=== PATIENT | female | born 1960 | race Caucasian/White ===

== ENCOUNTER → 2017-08-21 | Outpatient (CLI) | payer BC, SELFPAY | PROVIDERS: Family Provider Nurse Practitioner Family; Visit Provider Nurse Practitioner Family | DX: E01.0 Iodine-deficiency related diffuse (endemic) goiter (principal) | CPT/HCPCS: 36415; 76536; 84439; 84443; 84481; 86376 ==

== ENCOUNTER → 2017-11-10 15:14 | Outpatient (CLI) | payer BC, SELFPAY ==
--- NOTE | 2017-11-10 15:17 | CT_ITS ---
CT sinus wo con Ordering Physician: Sanket Bolanos MD Patient Age: 57 years: Female HISTORY: Chronic maxillary sinusitis TECHNIQUE: Helical CT scanning performed through the facial bones and sinuses with sagittal and coronal and axial reconstructions on CT workstation.. As requested by Dr. Bolanos the sinuses as well as majority of the head and skull were included, for the potential utilization of stereotactic localization. COMPARISON :None FINDINGS The maxillary sinuses are well-developed and clear with no mucosal thickening. The ostiomeatal complex and outflow pathways appear patent bilaterally. The ethmoid air cells appear normal. The sphenoid sinuses and frontal sinuses clear as well. Orbits unremarkable. There is slight sigmoid deviation of the nasal septum the mid septum slightly deviates to the right and the more inferior septum to the left on coronal views. There is moderate to generous engorgement of the nasal turbinates bilaterally.. . The orbital rims floor the orbit medial wall orbit intact. The mastoid air cells, middle air and IACs unremarkable. External canal is unremarkable. Imaged portions skull, intact.. Soft tissues the neck only minimal prominence of tonsils bilaterally. Scattered small and moderate nodes throughout the neck.. No additional features of concern. Right and left TMJ intact. IMPRESSION: Paranasal sinuses are clear and unremarkable. Specifically Maxillary sinuses well-developed and clear. No sinusitis evident. Modest Deviation nasal septum. As in text Engorgement of turbinates.
== END ==
PROVIDERS: Family Provider Nurse Practitioner Family; PCP Nurse Practitioner Family; Visit Provider Otolaryngology
DX: J32.0 Chronic maxillary sinusitis (principal)
CPT/HCPCS: 70486

== ENCOUNTER → 2018-04-30 08:28 | Outpatient (CLI) | payer BC, SELFPAY ==
--- NOTE | 2018-04-30 08:30 | MM_ITS ---
MM Dig screening mamm BI w/CAD CAD Screening COMPARISON: Digital mammograms with CAD 06/27/2016 and 01/30/2015 INDICATION: There is a history of breast cancer in patient's mother diagnosed before menopause TECHNIQUE: Standard CC and MLO images were obtained. R2 CAD reviewed. FINDINGS: Moderate diffuse fibroglandular densities are seen in the central portions of both breast and the findings are bilateral and symmetrical. There is no new or suspicious lesion in either breast and there are no suspicious microcalcifications. IMPRESSION: Moderate breast density with no suspicious lesion seen BI-RADS Category: 1 Negative RECOMMENDED FOLLOW-UP: 1YR - 1 YEAR FOLLOW-UP (A letter has been sent to the patient regarding results of the study.)
== END ==
PROVIDERS: Family Provider Nurse Practitioner Family; PCP Nurse Practitioner Family; Visit Provider Nurse Practitioner Obstetrics & Gynecology
DX: Z12.31 Encounter for screening mammogram for malignant neoplasm of breast (principal)
CPT/HCPCS: 77067

== ENCOUNTER → 2018-06-29 07:05 | Outpatient (CLI) | payer BC, SELFPAY ==
[2018-06-29 09:03] LABS: Basophils % 0.6 % (0.1-2.0); Eosinophils # 0.1 K/mm3 (0.0-0.4); Eosinophils % 1.6 % (0.1-12.0); Hematocrit 42.7 % (37.0-47.0); Hemoglobin 13.6 g/dL (12.2-16.2); Lymphocytes # 1.5 K/mm3 (0.7-4.5); Lymphocytes % 27.6 K/mm3 (10-50); Mean Corpuscular HGB Conc 31.9 g/dL (31.8-35.4); Mean Corpuscular Hemoglobin 30.2 pg (27.0-31.2); Mean Corpuscular Volume 94.7 fl (81-99); Monocytes # 0.2 K/mm3 (0.1-1.0); Monocytes % 3.7 % (1.7-9.3); Neutrophils # 3.5 K/mm3 (1.8-7.8); Neutrophils % 66.6 % (37.0-80.0); Platelet Count 202 K/mm3 (142-424); Red Blood Count 4.51 M/mm3 (4.20-5.40); Red Cell Distribution Width 13.5 % (11.5-17.5); White Blood Count 5.3 K/mm3 (4.8-10.8)
[2018-06-29 09:44] LABS: Alanine Aminotransferase 19 U/L (12-78); Albumin Level 3.6 gm/dL (3.4-5.0); Albumin/Globulin Ratio 1.1 (1.1-1.8); Alkaline Phosphatase 61 U/L (46-116); Anion Gap 10.4 mEq/L (5-15); Aspartate Amino Transferase 8 U/L (15-37); Bilirubin,Total 0.5 mg/dL (0.2-1.0); Blood Urea Nitrogen 23 mg/dL (7-18); Carbon Dioxide 32 mmol/L (21.0-32.0); Chloride 104 mmol/L (98-107); Chol/HDL Ratio 3.2 (1-3.5); Cholesterol 261 mg/dL (140-200); Creatinine,Serum 0.82 mg/dL (0.55-1.02); Estimated Glomerular Filt Rate 71 ml/min (>60); GFR (African American) 86 ML/MIN (>60); Globulin 3.2 gm/dl (1.3-3.2); Glucose 79 mg/dL (74-106); HDL Cholesterol 81 mg/dL (29-89); LDL Cholesterol 168 mg/dL (0-130); Potassium 4.4 mmoL/L (3.5-5.1); Sodium 142 mmol/L (136-145); Total Protein,Serum 6.8 gm/dL (6.4-8.2); Triglycerides 61 mg/dL (30-200); VLDL Cholesterol 12 mg/dL (0-40)
== END ==
PROVIDERS: PCP Nurse Practitioner Family; Visit Provider Nurse Practitioner Obstetrics & Gynecology
DX: Z01.419 Encounter for gynecological examination (general) (routine) without abnormal findings (principal)
CPT/HCPCS: 36415; 80053; 80061; 85025

== ENCOUNTER → 2022-04-20 09:44 | Outpatient (CLI) | payer OTHER, SELFPAY | PROVIDERS: PCP Nurse Practitioner Family; Visit Provider Ophthalmology | DX: Z01.812 Encounter for preprocedural laboratory examination (principal); Z20.822 Contact with and (suspected) exposure to COVID-19 | CPT/HCPCS: C9803; U0003; U0005 ==

== ENCOUNTER → 2022-05-27 10:32 | Outpatient (CLI) | payer OTHER, SELFPAY | PROVIDERS: PCP Nurse Practitioner Family; Visit Provider Ophthalmology | DX: Z01.812 Encounter for preprocedural laboratory examination (principal); Z20.822 Contact with and (suspected) exposure to COVID-19 | CPT/HCPCS: C9803; U0003; U0005 ==

== ENCOUNTER 2022-05-28 08:47 | Day surgery (SDC) | payer OTHER, SELFPAY ==
[2022-04-17 11:09] VITALS: BMI 23.1
[2022-05-28 09:15] VITALS: BP 116/69; PULSE 74; RESP 16; TEMP 36.1; O2SAT 99
[2022-05-28 10:16] VITALS: BP 149/79; PULSE 68; RESP 18; TEMP 36.1; O2SAT 99
== END 2022-05-28 10:17 | disposition home or self-care (01) ==
LOC: OUTP 08:48
PROVIDERS: PCP Nurse Practitioner Family; Visit Provider Ophthalmology
PROC: (CPT 66821; principal; 2022-05-28 09:30)
DX: H26.491 Other secondary cataract, right eye (principal)
CPT/HCPCS: 66821

== ENCOUNTER → 2023-08-21 07:05 | Outpatient (CLI) | payer MEDICARE, SELFPAY ==
[2023-08-20 18:18] LABS: Alanine Aminotransferase 22 U/L (12-78); Albumin Level 4.5 g/dl (3.5-5.0); Albumin/Globulin Ratio 1.3 (1.1-1.8); Alkaline Phosphatase 73 U/L (38-126); Anion Gap 11.5 mEq/L (5-15); Aspartate Amino Transferase 30 U/L (14-36); Bilirubin,Total 0.4 mg/dl (0.2-1.3); Blood Urea Nitrogen 25 mg/dl (7-17); Calcium 9.5 mg/dl (8.4-10.2); Carbon Dioxide 28 mmol/L (22.0-30.0); Chloride 104 mmol/L (98-107); Estimated Glomerular Filt Rate 56 ml/min (>60); GFR (African American) 67 ML/MIN (>60); Globulin 3.4 g/dL (1.3-3.2); Glucose 94 mg/dl (74-100); Potassium 4.5 mmoL/L (3.5-5.1); Sodium 139 mmol/L (136-145); Total Protein,Serum 7.9 g/dl (6.3-8.2)
[2023-08-20 18:49] LABS: Thyroid Stimulating Hormone 3.32 uIU/mL (0.465-4.68)
[2023-08-22 11:09] LABS: RA Latex Turbid. 12.5 IU/mL (<14.0)
[2023-08-26 15:17] LABS: Antinuclear Antibodies, IFA POSITIVE
== END ==
PROVIDERS: PCP Nurse Practitioner Family; Visit Provider Nurse Practitioner Family
DX: M25.541 Pain in joints of right hand (principal); M25.542 Pain in joints of left hand; R63.5 Abnormal weight gain; Z68.25 Body mass index [BMI] 25.0-25.9, adult
CPT/HCPCS: 80053; 84443; 84550; 86038; 86431

== ENCOUNTER 2025-08-29 14:49 | Outpatient (CLI) | payer MEDICARE, OTHER, SELFPAY ==
[2025-08-29 17:19] LABS: Hematocrit 39.0 % (37.0-47.0); Hemoglobin 12.3 g/dL (12.2-16.2); Immature Granulocytes % 0.2 %; Mean Corpuscular HGB Conc 31.5 g/dL (31.8-35.4); Mean Corpuscular Hemoglobin 29.1 pg (27.0-31.2); Mean Corpuscular Volume 92.4 fl (81-99); Nucleated Red Blood Cells % 0 %; Platelet Count 260 K/mm3 (142-424); Red Blood Count 4.22 M/mm3 (4.20-5.40); Red Cell Distribution Width-SD 43.8 fL; White Blood Count 4.9 K/mm3 (4.8-10.8)
[2025-08-29 17:42] LABS: Albumin Level 4.6 g/dl (3.5-5.0); Chloride 104 mmol/L (98-107); Potassium 4.8 mmoL/L (3.5-5.1); Sodium 138 mmol/L (136-145)
[2025-08-29 17:44] LABS: Blood Urea Nitrogen 21 mg/dl (7-17); Creatinine,Serum 1.10 mg/dl (0.52-1.04); Estimated Glomerular Filt Rate 50 ml/min (>60); GFR (African American) 60 ML/MIN (>60)
[2025-08-29 17:45] LABS: Alanine Aminotransferase 14 U/L (12-78); Albumin/Globulin Ratio 1.4 (1.1-1.8); Alkaline Phosphatase 69 U/L (38-126); Aspartate Amino Transferase 26 U/L (14-36); Bilirubin,Total 0.4 mg/dl (0.2-1.3); Calcium 10.2 mg/dl (8.4-10.2); Cholesterol 264 mg/dl (140-200); Globulin 3.2 g/dL (1.3-3.2); Glucose 98 mg/dl (74-100); HDL Cholesterol 87 mg/dl (40-60); Total Protein,Serum 7.8 g/dl (6.3-8.2); Triglycerides 125 mg/dl (30-150)
[2025-08-29 18:03] LABS: Free T4 (Free Thyroxine) 1.01 ng/dl (0.78-2.19); T4 (Thyroxine) 9.1 ug/dl (5.53-11.0)
[2025-08-29 18:16] LABS: Thyroid Stimulating Hormone 3.32 uIU/mL (0.465-4.68)
[2025-08-29 19:06] LABS: Anion Gap 11.8 mEq/L (5-15); Carbon Dioxide 27 mmol/L (22.0-30.0)
--- OUTSIDE RECORDS SUMMARY | 2025-08-30 10:04 | XMS_ITS ---
Author Organization Unknown TREATMENT PLAN [facility] Start Date Provider Encounter for Check-up [id number] DWIGHT Vora
== END 2025-08-29 23:59 | disposition home or self-care (01) ==
LOC: LAB.DROPOF 08-30 09:53
PROVIDERS: PCP Nurse Practitioner Family; Visit Provider Nurse Practitioner Family
DX: E78.5 Hyperlipidemia, unspecified (principal); R63.5 Abnormal weight gain; M25.541 Pain in joints of right hand; M25.542 Pain in joints of left hand; Z13.220 Encounter for screening for lipoid disorders
CPT/HCPCS: 80053; 80061; 84436; 84439; 84443; 85025